=== PATIENT | female | born 1990 | race Caucasian/White ===

== ENCOUNTER 2019-02-19 09:23 | Emergency (ER) | payer OTHER ==
[~2019-02-19] VITALS: Ht 172.7 cm; Wt 120.7 kg
[~2019-02-19 09:23] MED LIST: Crutch1 EACH MISC; IBUP800 PO; OXYACE5T PO; SERT25 PO; Verotin-Gr Cap1 EACH PO
[2019-02-19] MEDS ORDERED: LAMO100 PO (09:38)
[2019-02-19] MEDS ORDERED: METF500 PO (09:39)
[2019-02-19] MEDS ORDERED: CYCL10 PO (09:41)
[2019-02-19] MEDS ORDERED: ZYRTEC10 M2 PO (09:41)
[2019-02-19 10:34] LABS: BASOPHILS ABSOLUTE AUTO 0.03 K/mm3 (0.00-0.23); BASOPHILS PERCENT AUTO 1 % (0-2); EOSINOPHILS ABSOLUTE AUTO 0.07 K/mm3 (0.00-0.68); EOSINOPHILS PERCENT AUTO 1 % (0-6); Hematocrit 42.4 % (33.0-51.0); Hemoglobin 13.4 g/dL (11.5-16.0); IMMATURE GRAN ABSOLUTE AUTO 0.02 K/mm3 (0.00-0.10); IMMATURE GRAN PERCENT AUTO 0 % (0-1); LYMPHOCYTES ABSOLUTE AUTO 1.63 K/mm3 (0.84-5.20); LYMPHOCYTES PERCENT AUTO 27 % (21-46); MONOCYTES ABSOLUTE AUTO 0.52 K/mm3 (0.16-1.47); MONOCYTES PERCENT AUTO 9 % (4-13); Mean Corpuscular HGB 28.8 pg (26.0-34.0); Mean Corpuscular HGB Conc 31.6 g/dL (31.5-36.5); Mean Corpuscular Volume 91 fL (80-100); Mean Platelet Volume 10.3 fL (9.1-12.4); NEUTROPHILS ABSOLUTE AUTO 3.78 K/mm3 (1.96-9.15); NEUTROPHILS PERCENT AUTO 63 % (41-73); Platelet Count 314 K/mm3 (150-400); RDW Coefficient Variation 13.2 % (11.7-14.2); RDW Standard Deviation 44.3 fL (35.1-46.3); Red Blood Cell Count 4.66 M/mm3 (3.80-5.20); White Blood Cell Count 6.05 K/mm3 (4.00-11.30)
[2019-02-19 10:50] LABS: Alanine Aminotransfer (ALT/SGP 34 U/L (12-78); Albumin, Blood 3.6 g/dL (3.4-5.0); Alk Phos 53 U/L (50-136); Anion Gap 5 mmol/L (6-16); Aspartate Aminotrans (AST/SGOT 15 U/L (12-37); Bilirubin, Total 0.3 mg/dL (0.1-1.0); Blood Urea Nitrogen 15 mg/dL (8-24); Bun/Creatinine Ratio 25.6 (12.0-20.0); CO2, Blood 23 mmol/L (21-32); Calcium, Blood 8.9 mg/dL (8.5-10.1); Chloride, Blood 110 mmol/L (98-108); Creatinine, Blood 0.59 mg/dL (0.40-1.00); Globulin, Blood 3.7 g/dL (2.2-4.0); Glomerular Filtration Rate >60 (60-); Glucose, Blood 93 mg/dL (70-99); Potassium, Blood 4.2 mmol/L (3.5-5.5); Sodium, Blood 138 mmol/L (136-145); Total Protein, Blood 7.3 g/dL (6.4-8.2)
[2019-02-19] MEDS ORDERED: LIDO700A20 TOP (11:40)
== END 2019-02-19 11:46 | disposition home or self-care (01) ==
LOC: ER 09:23
PROVIDERS: Physician Assistant
DX: M54.6 Pain in thoracic spine (principal); Z88.8 Allergy status to other drugs, medicaments and biological substances; Z88.1 Allergy status to other antibiotic agents; Z79.899 Other long term (current) drug therapy; Z79.84 Long term (current) use of oral hypoglycemic drugs
CPT/HCPCS: 36415; 74176; 80053; 83690; 84703; 85025; 96374; 96375; 99284-25; A9270-GY; J1885; J2405

== ENCOUNTER → 2020-01-22 | Outpatient (CLI) | payer OTHER ==
[~2020-01-22] MED LIST changes: +CYCL10 PO; +LAMO100 PO; +LIDO700A20 TOP; +METF500 PO; +ZYRTEC10 M2 PO
== END | disposition home or self-care (01) ==
LOC: LAB SHORT 10:14 → LAB 10:14
DX: N91.2 Amenorrhea, unspecified (principal)
CPT/HCPCS: 84702

== ENCOUNTER 2020-04-04 06:54 | Day surgery (SDC) | payer OTHER ==
[~2020-04-04] VITALS: Ht 172.7 cm; Wt 105.5 kg
[~2020-04-04 06:54] MED LIST changes: +Clomiphene Citr50 MG PO; +OMEP20ER PO; +TOPI100 PO
== END 2020-04-04 10:10 | disposition home or self-care (01) ==
LOC: ORSCSDS 06:54
PROVIDERS: Obstetrics & Gynecology
PROC: 0UBL0ZZ Excision of Vestibular Gland, Open Approach (ICD-10-PCS; principal; 2020-04-04 08:00)
DX: N75.0 Cyst of Bartholin's gland (principal); E11.9 Type 2 diabetes mellitus without complications; E66.01 Morbid (severe) obesity due to excess calories; Z68.35 Body mass index [BMI] 35.0-35.9, adult; Z79.899 Other long term (current) drug therapy; Z79.84 Long term (current) use of oral hypoglycemic drugs
CPT/HCPCS: 82947; 88304; J0171; J0690; J1100; J1885; J2250; J2370; J2405; J2704; J3010; J7120

== ENCOUNTER → 2021-01-09 | Outpatient (CLI) | payer OTHER ==
[2021-01-10 14:10] LABS: HPV 16 Negative (Negative); HPV 18 Negative (Negative); HPV OTHER HR TYPES Positive (Negative)
== END | disposition home or self-care (01) ==
LOC: LAB 11:52 → LAB SHORT 11:52
PROVIDERS: Obstetrics & Gynecology
DX: Z12.4 Encounter for screening for malignant neoplasm of cervix (principal)
CPT/HCPCS: 87624; G0123

== ENCOUNTER → 2021-02-27 | Outpatient (CLI) | payer OTHER | END | disposition home or self-care (01) | LOC: LAB SHORT 07:53 | DX: N72 Inflammatory disease of cervix uteri (principal) | CPT/HCPCS: 88305 ==

== ENCOUNTER → 2022-03-28 | Outpatient (CLI) | payer OTHER ==
[2022-03-30 12:10] LABS: HPV 16 Negative (Negative); HPV 18 Negative (Negative); HPV OTHER HR TYPES Negative (Negative)
== END ==
LOC: LAB SHORT 15:30 → LAB 15:30
PROVIDERS: Obstetrics & Gynecology
DX: Z12.4 Encounter for screening for malignant neoplasm of cervix (principal); R87.613 High grade squamous intraepithelial lesion on cytologic smear of cervix (HGSIL); R87.810 Cervical high risk human papillomavirus (HPV) DNA test positive
CPT/HCPCS: 87624; G0123

== ENCOUNTER 2024-08-30 10:31 | Observation (INO) | payer OTHER ==
[2024-08-30] VITALS (8 sets, daily range): BP systolic 91–124; BP diastolic 50–69
[~2024-08-30] VITALS: Ht 172.7 cm; Wt 107.0 kg
[2024-08-30] MEDS ORDERED: Rho(D) Immune Globulin 300 MCG / SYR IM ONE (11:35)
[2024-08-30] MEDS ORDERED: NIFEdipine 10 MG Cap PO ONE (11:42)
[2024-08-30 11:59] LABS: BASOPHILS ABSOLUTE AUTO 0.02 K/mm3 (0.00-0.23); BASOPHILS PERCENT AUTO 0 % (0-2); EOSINOPHILS ABSOLUTE AUTO 0.05 K/mm3 (0.00-0.68); EOSINOPHILS PERCENT AUTO 1 % (0-6); Hematocrit 34.5 % (33.0-51.0); Hemoglobin 11.6 g/dL (11.5-16.0); IMMATURE GRAN ABSOLUTE AUTO 0.06 K/mm3 (0.00-0.10); IMMATURE GRAN PERCENT AUTO 1 % (0-1); LYMPHOCYTES ABSOLUTE AUTO 1.38 K/mm3 (0.84-5.20); LYMPHOCYTES PERCENT AUTO 18 % (21-46); MONOCYTES ABSOLUTE AUTO 0.49 K/mm3 (0.16-1.47); MONOCYTES PERCENT AUTO 6 % (4-13); Mean Corpuscular HGB Conc 33.6 g/dL (31.5-36.5); Mean Corpuscular Volume 89 fL (80-100); Mean Platelet Volume 11.3 fL (9.1-12.4); NEUTROPHILS PERCENT AUTO 74 % (41-73); Platelet Count 222 K/mm3 (150-400); RDW Coefficient Variation 13.2 % (11.7-14.2); RDW Standard Deviation 43.4 fL (35.1-46.3); Red Blood Cell Count 3.87 M/mm3 (3.80-5.20)
[2024-08-30] MEDS ORDERED: Lactated Ringer's 1,000 ML IV ONE (12:51)
[2024-08-30] MEDS ORDERED: NIFEdipine 60 MG TabCR PO SCH (13:00)
[2024-08-30] MEDS ORDERED: PRENATAL TABLE1 EAC2 PO (13:03)
[2024-08-30] MEDS ORDERED: ACET500 (13:03)
[2024-08-30] MEDS ORDERED: OMEP20ER (13:03)
[2024-08-30] MEDS ORDERED: Lactated Ringer's 1,000 ML IV SCH (13:10)
[2024-08-30] MEDS ORDERED: Acetaminophen 500 MG Tab PO PRN (15:35)
[2024-08-30] MEDS ORDERED: Zolpidem Tartrate 5 MG Tab PO PRN (19:50)
[2024-08-31 00:06] VITALS: BP 99/56
[2024-08-31 04:13] VITALS: BP 99/54
[2024-08-31 08:05] VITALS: BP 105/55
[2024-08-31 10:16] VITALS: BP 121/65
== END 2024-08-31 10:25 | disposition home or self-care (01) ==
LOC: BC 10:31 → OBS 10:31 → BC 12:34
PROVIDERS: ADMIT Obstetrics & Gynecology
DX: O46.92 Antepartum hemorrhage, unspecified, second trimester (principal); Z3A.27 27 weeks gestation of pregnancy; Z79.84 Long term (current) use of oral hypoglycemic drugs; Z88.8 Allergy status to other drugs, medicaments and biological substances
CPT/HCPCS: 59025; 76815; 76817; 85025; 86850; 86900; 86901; 96372; 99213; A9270; J2791; J7120

== ENCOUNTER 2024-11-11 09:19 | Inpatient (IN) | payer OTHER ==
[2024-11-11] VITALS (16 sets, daily range): BP systolic 93–151; BP diastolic 41–79
[~2024-11-11] VITALS: Ht 172.7 cm; Wt 115.0 kg
[~2024-11-11 09:19] MED LIST changes: +ACET500; +OMEP20ER; +PRENATAL TABLE1 EAC2 PO
[2024-11-11] MEDS ORDERED: CeFAZolin Sodium 2,000 MG in NS 100 ML IV SCH (09:40)
[2024-11-11] MEDS ORDERED: Ondansetron HCl 2 MG / ML 2ML Vial IV PRN ×3 (09:45→13:45)
[2024-11-11] MEDS ORDERED: Tranexamic Acid 100 ML IV SCH (09:45)
[2024-11-11] MEDS ORDERED: Oxytocin 10 Unit / ML Vial IM PRN (09:45)
[2024-11-11] MEDS ORDERED: OXYTOCIN/RINGER'S LACTATE 500 ML IV PRN (09:45)
[2024-11-11] MEDS ORDERED: Methylergonovine Maleate 0.2MG / ML 1ML Amp IM PRN ×2 (09:45→14:00)
[2024-11-11] MEDS ORDERED: Carboprost Tromethamine 250 MCG/ML 1ML Amp IM PRN (09:45)
[2024-11-11 09:50] LABS: BASOPHILS ABSOLUTE AUTO 0.01 K/mm3 (0.00-0.23); BASOPHILS PERCENT AUTO 0 % (0-2); EOSINOPHILS ABSOLUTE AUTO 0.01 K/mm3 (0.00-0.68); EOSINOPHILS PERCENT AUTO 0 % (0-6); Hematocrit 30.9 % (33.0-51.0); Hemoglobin 10.3 g/dL (11.5-16.0); IMMATURE GRAN ABSOLUTE AUTO 0.03 K/mm3 (0.00-0.10); IMMATURE GRAN PERCENT AUTO 0 % (0-1); LYMPHOCYTES ABSOLUTE AUTO 1.44 K/mm3 (0.84-5.20); LYMPHOCYTES PERCENT AUTO 21 % (21-46); MONOCYTES ABSOLUTE AUTO 0.56 K/mm3 (0.16-1.47); MONOCYTES PERCENT AUTO 8 % (4-13); Mean Corpuscular HGB Conc 33.3 g/dL (31.5-36.5); Mean Corpuscular Volume 86 fL (80-100); NEUTROPHILS ABSOLUTE AUTO 4.84 K/mm3 (1.96-9.15); NEUTROPHILS PERCENT AUTO 70 % (41-73); NRBC ABSOLUTE 0.00 K/mm3 (0.00-0.02); NRBC Auto 0.0 /100 WBC (0.0-0.2); Platelet Count 279 K/mm3 (150-400); RDW Coefficient Variation 13.3 % (11.7-14.2); RDW Standard Deviation 41.3 fL (35.1-46.3)
[2024-11-11] MEDS ORDERED: HYDROmorphone HCl/Pf 1MG SYR IV PRN (11:45)
[2024-11-11] MEDS ORDERED: FentaNYL Citrate 50 MCG/ML 2 ML Injection IV PRN (11:45)
[2024-11-11] MEDS ORDERED: FentaNYL Citrate 50 MCG/ML 2 ML Injection ONE (12:22)
[2024-11-11] MEDS ORDERED: Phenylephrine HCl 100 MCG/ML-NS 10MLSYR (1MG/10ML) ONE (12:40)
[2024-11-11] MEDS ORDERED: Oxytocin 10 Unit / ML Vial ONE (12:41)
[2024-11-11] MEDS ORDERED: Ketorolac Tromethamine 30mg Vial ONE (13:15)
[2024-11-11 13:17] LABS: PCO2 Cord - Arterial 55.7 mmHg (40-50); PO2 Cord - Arterial < 14.0 mmHg (16-20); pH Cord - Arterial 7.27 (7.28-7.35)
[2024-11-11 13:20] LABS: PCO2 Cord - Venous 47.5 mmHg (40-50); PO2 Cord - Venous 15.2 mmHg (28-32); pH Umbilical Cord - Venous 7.32 (7.26-7.35)
--- NOTE | 2024-11-11 13:39 | NUR ---
11/11/24 1339 HildaKaushikjacinto BABY BOY BORN AT 1253. CORD BLOOD SENT WITH OB NURSE. CORD SEGMENT SENT WITH RT.
[2024-11-11] MEDS ORDERED: Morphine Sulfate 4 MG/1 ML Injection IV PRN (13:45)
[2024-11-11] MEDS ORDERED: OxyCODONE 5 mg/Acetamin 325 mg TABLET PO PRN (13:50)
[2024-11-11] MEDS ORDERED: Rho(D) Immune Globulin 300 MCG / SYR IM ONE ×2 (13:55→18:20)
[2024-11-11] MEDS ORDERED: OXYTOCIN/RINGER'S LACTATE 500 ML IV SCH (13:55)
[2024-11-11] MEDS ORDERED: Magnesium Hydroxide Conc 10 ML UDC PO PRN (13:55)
[2024-11-11] MEDS ORDERED: Ketorolac Tromethamine 30mg Vial IV SCH (14:00)
[2024-11-11] MEDS ORDERED: Rho(D) Immune Globulin 300 MCG / SYR IV ONE (22:15)
[2024-11-12 00:59] VITALS: BP 116/74
[2024-11-12 04:56] VITALS: BP 134/72
[2024-11-12 06:29] LABS: BASOPHILS ABSOLUTE AUTO 0.02 K/mm3 (0.00-0.23); BASOPHILS PERCENT AUTO 0 % (0-2); EOSINOPHILS ABSOLUTE AUTO 0.05 K/mm3 (0.00-0.68); EOSINOPHILS PERCENT AUTO 1 % (0-6); Hematocrit 29.3 % (33.0-51.0); Hemoglobin 9.7 g/dL (11.5-16.0); IMMATURE GRAN ABSOLUTE AUTO 0.04 K/mm3 (0.00-0.10); IMMATURE GRAN PERCENT AUTO 0 % (0-1); LYMPHOCYTES ABSOLUTE AUTO 1.43 K/mm3 (0.84-5.20); LYMPHOCYTES PERCENT AUTO 15 % (21-46); MONOCYTES ABSOLUTE AUTO 0.76 K/mm3 (0.16-1.47); MONOCYTES PERCENT AUTO 8 % (4-13); Mean Corpuscular HGB Conc 33.1 g/dL (31.5-36.5); Mean Corpuscular Volume 88 fL (80-100); NEUTROPHILS ABSOLUTE AUTO 7.40 K/mm3 (1.96-9.15); NEUTROPHILS PERCENT AUTO 76 % (41-73); NRBC ABSOLUTE 0.00 K/mm3 (0.00-0.02); NRBC Auto 0.0 /100 WBC (0.0-0.2); Platelet Count 213 K/mm3 (150-400); RDW Coefficient Variation 13.4 % (11.7-14.2); RDW Standard Deviation 42.6 fL (35.1-46.3)
[2024-11-12 08:24] VITALS: BP 111/64
[2024-11-12] MEDS ORDERED: Ketorolac Tromethamine 30mg Vial IV ONE (08:50)
[2024-11-12] MEDS ORDERED: Prenatal Vit/FE Fumarate/FA 1 Tab PO SCH (09:00)
[2024-11-12 11:39] VITALS: BP 117/74
[2024-11-12] MEDS ORDERED: MOTRIN IB200 MG PO (14:10)
[2024-11-12] MEDS ORDERED: Percocet 5-3251 EACH PO (14:10)
[2024-11-12 14:56] VITALS: BP 112/74
== END 2024-11-12 15:22 | disposition home or self-care (01) | DRG 785 ==
LOC: BC 09:19
PROVIDERS: ADMIT Obstetrics & Gynecology
PROC: 3E0334Z Introduction of Serum, Toxoid and Vaccine into Peripheral Vein, Percutaneous Approach (ICD-10-PCS; 2024-11-11)
PROC: 0UT70ZZ Resection of Bilateral Fallopian Tubes, Open Approach (ICD-10-PCS; principal; 2024-11-11 12:00)
PROC: 10D00Z1 Extraction of Products of Conception, Low, Open Approach (ICD-10-PCS; 2024-11-11 12:00)
DX: O42.92 Full-term premature rupture of membranes, unspecified as to length of time between rupture and onset of labor (principal); Z37.0 Single live birth; Z3A.37 37 weeks gestation of pregnancy; Z30.2 Encounter for sterilization
CPT/HCPCS: 36415; 59025; 82803; 85025; 85460; 86850; 86900; 86901; 86923; 88307; 99214; A9270; J0690; J1885; J2371; J2590; J2791; J3010; J7120